=== PATIENT | male | born 1975 | race Caucasian/White ===

== ENCOUNTER 2021-12-14 20:09 | Inpatient (IN) | payer BC ==
[~2021-12-14] VITALS: Ht 177.8 cm; Wt 79.8 kg
[~2021-12-14 20:09] MED LIST: FENTANYL CITRATE/PF 100MCG/2 ML INJ ONE; MIDAZOLAM HCL 2 MG/2 ML VIAL ONE; no meds
[2021-12-14 22:42] VITALS: BP 131/74
[2021-12-14 22:44] VITALS: BP 131/74
[2021-12-14 22:45] VITALS: BP 131/74
[2021-12-14] MEDS ORDERED: SODIUM CHLORIDE 0.9% 1000ML 1,000 ML IV SCH (23:15)
[2021-12-14] MEDS: ONDANSETRON HCL INJ 2MG/ML 2ML 2 MG/ML VIAL IV PRN (23:33)
[2021-12-14] MEDS: Morphine 2mg Syringe 2 MG/ML SYR IV PRN (23:33)
[2021-12-15] VITALS (8 sets, daily range): BP systolic 100–125; BP diastolic 56–69
[2021-12-15] MEDS ORDERED: ACETAMINOPHEN 1000 MG/100 ML IV SCH ×2
[2021-12-15] MEDS: PIPERACILLIN/TAZOBACTAM 3.375 GM in SODIUM CHLORIDE 0.9% 50ML 50 ML IV SCH ×4 (00:23→18:00)
[2021-12-15] MEDS: ACETAMINOPHEN 1000 MG/100 ML IV PRN ×2 (01:30→07:03)
[2021-12-15] MEDS ORDERED: ALPRAZOLAM0.25 MG PO (01:44)
[2021-12-15] MEDS ORDERED: ADDERALL 20 MG20 MG (01:44)
[2021-12-15] MEDS: Morphine 2mg Syringe 2 MG/ML SYR IV PRN ×2 (03:40→07:31)
[2021-12-15 06:11] LABS: BASOPHILS % 0.1 % (0.0-1.0); EOSINOPHILS % 0.1 % (0.0-6.0); HEMATOCRIT 38.9 % (38.2-49.6); HEMOGLOBIN 12.9 g/dL (14.0-18.0); LYMPHOCYTES # (AUTO) 0.9 (1.0-3.2); LYMPHOCYTES % 7.7 % (18.0-39.1); MEAN CORPUSCULAR HEMOGLOBIN 31.5 pg (28-32); MEAN CORPUSCULAR HGB CONC 33.2 g/dL (31-35); MEAN CORPUSCULAR VOLUME 94.9 fL (81-99); MONOCYTES # (AUTO) 0.7 (0.2-0.8); MONOCYTES % 6.2 % (4.4-11.3); NEUTROPHILS # (AUTO) 10.1 (2.1-6.9); NEUTROPHILS % 85.6 % (38.7-80.0); PLATELET COUNT 222 x10e3/uL (140-360); RED CELL DISTRIBUTION WIDTH 13.7 % (11.7-14.4)
[2021-12-15 06:40] LABS: ALBUMIN 3.2 g/dL (3.5-5.0); ALBUMIN/GLOBULIN RATIO 1.1 (0.8-2.0); ANION GAP 13.5 mmol/L (8-16); CALCIUM 8.9 mg/dL (8.4-10.2); CREATININE, SERUM 1.1 mg/dL (0.72-1.25); POTASSIUM 3.5 mmol/L (3.5-5.1)
[2021-12-15] MEDS: ONDANSETRON HCL INJ 2MG/ML 2ML 2 MG/ML VIAL IV PRN (07:31)
[2021-12-15] MEDS ORDERED: BUPIVACAINE 0.25% 30ML SDV ONE (11:26)
[2021-12-15] MEDS ORDERED: BUPIVACAINE HCL 0.5% INJ 30 ML VIAL INJ ONE (11:26)
[2021-12-15] MEDS ORDERED: ACETAMINOPHEN 325 MG TAB PO PRN (12:00)
[2021-12-15] MEDS ORDERED: HYDROCODONE/APAP 5MG-325MG TAB PO PRN (12:00)
[2021-12-15] MEDS ORDERED: ONDANSETRON HCL INJ 2MG/ML 2ML 2 MG/ML VIAL IV PRN (12:00)
[2021-12-15] MEDS ORDERED: LIDOCAINE HCL 2% LOCAL INJ 5 ML SDV VIAL INJ ONE (12:39)
[2021-12-15] MEDS ORDERED: ONDANSETRON HCL INJ 2MG/ML 2ML 2 MG/ML VIAL ONE (12:39)
[2021-12-15] MEDS ORDERED: DEXAMETHASONE SOD PHOS INJ 4 MG/ML SDV ONE (12:39)
[2021-12-15] MEDS ORDERED: SEVOFLURANE INHAL SOLN 250 ML PEN BTL ONE (12:39)
[2021-12-15] MEDS ORDERED: POVIDONE IODINE 0.05% 0.05 % ML PO ONE (12:39)
[2021-12-15] MEDS ORDERED: ROCURONIUM BROMIDE 10 MG/ML 5ML VIAL IV ONE (12:39)
[2021-12-15] MEDS ORDERED: PROPOFOL IV EMULSION 10 MG/ML 20 ML VIAL ONE (12:39)
[2021-12-15] MEDS ORDERED: KETOROLAC TROMETHAMINE 30 MG/ML VIAL ONE (12:39)
[2021-12-15] MEDS: SODIUM CHLORIDE 0.9% 1000ML 1,000 ML IV SCH (12:51)
[2021-12-15] MEDS: HYDROMORPHONE 1MG/1ML INJ IV PRN ×2 (18:00→21:23)
[2021-12-16] VITALS: BP 92/61
[2021-12-16] MEDS: PIPERACILLIN/TAZOBACTAM 3.375 GM in SODIUM CHLORIDE 0.9% 50ML 50 ML IV SCH ×5 (00:23→23:54)
[2021-12-16] MEDS: HYDROMORPHONE 1MG/1ML INJ IV PRN ×8 (00:38→23:55)
[2021-12-16] MEDS: SODIUM CHLORIDE 0.9% 1000ML 1,000 ML IV SCH ×3 (00:53→18:01)
[2021-12-16 04:00] VITALS: BP 102/59
[2021-12-16 08:00] VITALS: BP 102/59
[2021-12-16 08:30] LABS: BASOPHILS % 0.2 % (0.0-1.0); EOSINOPHILS % 0.1 % (0.0-6.0); HEMATOCRIT 37.6 % (38.2-49.6); HEMOGLOBIN 12.2 g/dL (14.0-18.0); LYMPHOCYTES # (AUTO) 1.4 (1.0-3.2); LYMPHOCYTES % 9.7 % (18.0-39.1); MEAN CORPUSCULAR HEMOGLOBIN 31.4 pg (28-32); MEAN CORPUSCULAR HGB CONC 32.4 g/dL (31-35); MEAN CORPUSCULAR VOLUME 96.9 fL (81-99); MONOCYTES # (AUTO) 0.9 (0.2-0.8); MONOCYTES % 6.1 % (4.4-11.3); NEUTROPHILS # (AUTO) 11.9 (2.1-6.9); NEUTROPHILS % 83.3 % (38.7-80.0); PLATELET COUNT 228 x10e3/uL (140-360); RED BLOOD COUNT 3.88 x10e6/uL (4.3-5.7)
[2021-12-16 08:45] LABS: CALCIUM 9.5 mg/dL (8.4-10.2); CREATININE, SERUM 0.99 mg/dL (0.72-1.25)
[2021-12-16 15:23] VITALS: BP 115/67
[2021-12-16 19:30] VITALS: BP 127/75
[2021-12-16 19:59] VITALS: BP 127/75
[2021-12-17] VITALS: BP 117/65
[2021-12-17] MEDS: SODIUM CHLORIDE 0.9% 1000ML 1,000 ML IV SCH (03:25)
[2021-12-17 04:00] VITALS: BP 112/72
[2021-12-17] MEDS: PIPERACILLIN/TAZOBACTAM 3.375 GM in SODIUM CHLORIDE 0.9% 50ML 50 ML IV SCH (05:19)
[2021-12-17 07:14] VITALS: BP 117/68
[2021-12-17] MEDS ORDERED: ONDANSETRON HCL 4 MG ORAL DISINTEGRATING TAB PO PRN (08:30)
[2021-12-17] MEDS ORDERED: METRONIDAZOLE500 MG PO (08:52)
[2021-12-17] MEDS ORDERED: CEPHALEXIN500 MG PO (08:52)
[2021-12-17] MEDS ORDERED: ONDANSETRON ODT4 MG PO (08:52)
[2021-12-17] MEDS ORDERED: ACETAMINOPHEN325 M1 PO (08:52)
[2021-12-17 08:53] VITALS: BP 117/68
[2021-12-17 11:04] VITALS: BP 117/67
== END 2021-12-17 11:43 | disposition home or self-care (01) | DRG 853 ==
LOC: MED/SURG2 20:09 → UNDOADMOB 20:09 → MED/SURG2 21:01 → OBSVTOIN 12-16 08:10
PROVIDERS: ADMIT Internal Medicine; ATTEND Internal Medicine
PROC: XW03396 Introduction of Ceftolozane/Tazobactam Anti-infective into Peripheral Vein, Percutaneous Approach, New Technology Group 6 (ICD-10-PCS; 2021-12-15)
PROC: 0DTJ4ZZ Resection of Appendix, Percutaneous Endoscopic Approach (ICD-10-PCS; principal; 2021-12-15 11:30)
DX: A41.9 Sepsis, unspecified organism (principal); K35.32 Acute appendicitis with perforation, localized peritonitis, and gangrene, without abscess; Z20.822 Contact with and (suspected) exposure to COVID-19; N20.0 Calculus of kidney; F90.9 Attention-deficit hyperactivity disorder, unspecified type
CPT/HCPCS: 36415; 80048; 80053; 85025; 88304; 94799; G0378; J1100; J1170; J1885; J2001; J2250; J2270; J2405; J2543; J3010; J7030